=== PATIENT | male | born 1985 | race Caucasian/White ===

== ENCOUNTER 2018-11-09 08:49 | Emergency (ER) | payer SELFPAY ==
[~2018-11-09] VITALS: Ht 177.8 cm; Wt 72.6 kg
[2018-11-09 08:55] VITALS: BP_SYST 137
--- NOTE | 2018-11-09 08:55 | NUR ---
Patient to ER bed 7 to gown for evaluation. Side rails up. Report given to ARMIN Crawford.
--- NOTE | 2018-11-09 09:17 | NUR ---
Pt arrived to ED with complaints of right lower jaw pain 10/19. Pt states that he broke his tooth many many years ago skateboarding and that his jaw has been swelling off and on for awhile. Pt also stated that his tooth bleeds from time to time but denies drainage or smell.
--- NOTE | 2018-11-09 09:41 | NUR ---
Pt was not located in room, checked with the manager front office and they indicated that pt said my grandma got into an accident and i got my discharge paper and gotta go Addendum: 11/09/18 at 0949 by [email or web address] Pt eloped, all bathrooms were checked prior to checking with manager front office.
== END 2018-11-09 09:41 | disposition left against medical advice (07) ==
LOC: SED 08:49
DX: K08.89 Other specified disorders of teeth and supporting structures (principal); Z53.21 Procedure and treatment not carried out due to patient leaving prior to being seen by health care provider